=== PATIENT | female | born 1945 | race Caucasian/White ===

== ENCOUNTER → 2017-02-09 | Outpatient (CLI) | payer OTHER, MEDICARE ==
[2017-02-09 09:52] LABS: HEMATOCRIT 40.5 % (37.0-47.0); HEMOGLOBIN 13.2 g/dL (12.0-16.0); MEAN CORPUSCULAR HEMOGLOBIN 33.8 PG (27-31); MEAN CORPUSCULAR HGB CONC 32.6 g/dL (33-37); MEAN CORPUSCULAR VOLUME 103.6 FL (81-99); MEAN PLATELET VOLUME 10.1 FL (7.4-12.2); RED BLOOD COUNT 3.91 10^6/uL (4.20-5.40)
[2017-02-09 10:19] LABS: BUN/CREATININE RATIO 34.28 (6-20); C-REACTIVE PROTEIN 1.6 mg/dL (0.0-0.9); CALCIUM 9.3 mg/dL (8.7-10.7); SERUM ALBUMIN 3.7 g/dL (3.5-4.8)
--- NOTE | 2017-02-09 12:13 | DI ---
CERVICAL SPINE SERIES, 02/09/2017 10:09 AM: Clinical History: Neck pain. Previous Exam: None at this facility. Comparison is made with a CT scan of the cervical spine from performed at [facility] [place] of [place], [place]. Upright AP and lateral and upright lateral flexion and extension views are submitted. The vertebral b odies are normal in height and size. There is mild C4-5 and moderate C5-6 disc space narrowing. The r emaining disc spaces are of normal height. This patient has significant thoracic kyphosis resulting i n marked positive sagittal balance. In the neutral and extension positions, there is normal posterior alignment. With flexion, there is 1 mm anterior subluxation of C3 on C4. C1 articulates normally wit h C2 and the occiput. Prevertebral soft tissue planes are normal. Readin. There is marked thoracic kyphosis with a marked positive sagittal balance. 2. Disc space narrowing is present at C4-5 and C5-6. 3. There is motion at the C3-4 level with 1 mm anterior subluxation of C3 on C4 with flexion. This l evel is normal with extension and in the neutral position.
[2017-02-10 10:31] LABS: HEP B CORE IGM ANTIBODY Negative (Negative); HEPATITIS A IGM Negative (Negative); HEPATITIS B SURFACE AG Negative (Negative)
[2017-02-10 13:01] LABS: RHEUMATOID FACTOR <15 IU/mL (<15)
[2017-02-10 14:46] LABS: A/G RATIO 0.87 (()); ALB PEP SER 3.1 g/dL (3.4-4.7); ALP1 GLOB 0.3 g/dL (0.1-0.3); ALP2 GLOB 1.3 g/dL (0.6-1.0); GAMMA GLOBS 0.8 g/dL (0.6-1.6)
== END ==
LOC: LAB 09:13
PROVIDERS: ATTEND Neurological Surgery
DX: E11.9 Type 2 diabetes mellitus without complications (principal); G62.9 Polyneuropathy, unspecified; I10 Essential (primary) hypertension; I73.9 Peripheral vascular disease, unspecified; M54.2 Cervicalgia; M47.812 Spondylosis without myelopathy or radiculopathy, cervical region; F17.200 Nicotine dependence, unspecified, uncomplicated
CPT/HCPCS: 20610; 36415; 72050; 80053; 82607; 82746; 83036; 84155; 84165; 84443; 85027; 85652; 86140; 86431; 86705; 86709; 86803; 87340; 99214

== ENCOUNTER → 2017-02-16 | Outpatient (CLI) | payer OTHER | LOC: MMPC 10:00 | PROVIDERS: ATTEND Neurological Surgery | DX: M54.2 Cervicalgia (principal); M79.601 Pain in right arm | CPT/HCPCS: 99213; G0463 ==

== ENCOUNTER → 2017-02-18 | Outpatient (CLI) | payer OTHER ==
--- NOTE | 2017-02-18 20:54 | DI ---
MRI CERVICAL SPINE SCAN, 02/18/2017 10:08 AM: Clinical History: Cervical radiculitis. Previous Exam: None. Sequences: Sagittal T1and T2 weighted. Axial T2 PLUS and FE 3D DUAL. Coronal T1 scans through the upp er cervical spine. The vertebral bodies are of normal height and size. There is disc space narrowing at C4-5 and C5-6. A ll cervical disc spaces show desiccation change. The cervical cord and cerebellar tonsils are normal. The C2-3 and C3-4 disc spaces are normal. There is a focal midline bulging disc at C4-5 and there is no canal or neural foraminal stenosis. C5-6 has a right anterolateral disc herniation that is displa cing the cord posteriorly on the right side and is producing right neural foraminal stenosis. There i s no canal or left neural foraminal stenosis. C6-7 has a small focal central bulging disc without can al or neural foraminal stenosis. The disc spaces at C7-T1 and T1-2 are normal. T2-3 through T5-6 has very mild bulging but not herniated discs without canal or neural foraminal stenosis. Readin. There is a right anterolateral C5-6 disc herniation that is producing right neural foraminal sten osis and is displacing the cord posteriorly on the right side. There is no canal or left neural kermit inal stenosis. 2. There are minimally bulging but not herniated discs without canal or neural foraminal stenosis at C4-5, C6-7, and T2-3 through T5-6. 3. The disc spaces at C2-3, C3-4, C7-T1, and T1-2 are normal.
== END ==
LOC: MRI 11:00
PROVIDERS: ATTEND Neurological Surgery
DX: M54.12 Radiculopathy, cervical region (principal); M50.122 Cervical disc disorder at C5-C6 level with radiculopathy; M47.812 Spondylosis without myelopathy or radiculopathy, cervical region
CPT/HCPCS: 72141

== ENCOUNTER 2017-03-10 09:55 | Day surgery (SDC) | payer OTHER ==
[~2017-03-10 09:55] MED LIST: DEXAMETHASONE SOD PHOSPHATE 4 MG/1 ML VIAL IM ONE; Iopamidol Inj 61% 50 ML VIAL IV ONE; TRIAMCINOLONE ACETONIDE 40 MG/1 ML IM ONE
[2017-03-10 10:40] VITALS: RESP 22
--- NOTE | 2017-03-10 11:29 | GEN.OPNOTE ---
Interlaminar SARANYA Procedure: Interlaminar Epidural Steriod Injection Procedure Code - Neurosurgery: 65229 : Cervical Epidural Injection (Single) -: Consent: Rationale for procedure, nature of procedure, possible risks and benefits were discussed with the patient. Risks including allergic reaction to medications, known effects of steroid medications including transient elevation in blood sugar with aggravation of pre-existing diabetes and remote risk of aseptic necrosis of the hip. Pain at the injection site, inadvertent dural puncture with resultant in CSF leak and headache possibly requiring further treatment. Infection or bleeding with potential risk of neurologic injury with weakness, paralysis or were all reviewed with the patient who wished to proceed. Anesthesia, sedation: No intravenous access or sedation was used. Physiologic monitoring of pulse and oxygen saturation was utilized. Procedure: The patient was placed prone on the operating room table, prepped with Chloroprep and sterilely draped. The skin was anesthetized with 1% Buffered Xylocaine. Under fluoroscopic control a 22-gauge Touhy needle was advanced into the epidural space at the C67 level. Using loss-of- resistance technique the epidural space was identified. Omnipaque was injected under real- time fluoroscopy demonstrating an epidurogram. Following this 3 ml of a mixture of triamcinolone 40mg , dexamethasone 10 mg and 2cc normal saline was injected epidurally. AP and lateral images of the final needle placement were obtained. The needle was removed and the patient returned to the post procedure recovery room where they were monitored for any side effects. Pain assessment: Preprocedure pain []/10, post procedure pain []/10. Discharge instructions: Patient was given a pain log to be filled out and returned. A delayed response to the steroids of 2-5 days was discussed.
[2017-03-10 11:39] VITALS: TEMP 97
== END 2017-03-10 11:36 | disposition home or self-care (01) ==
LOC: SDSC 09:55
PROVIDERS: ATTEND Pain Medicine Interventional Pain Medicine
DX: M54.2 Cervicalgia (principal); M79.601 Pain in right arm
CPT/HCPCS: 76000; J1100